=== PATIENT | male | born 1955 | race Caucasian/White ===

== ENCOUNTER 2016-09-28 16:21 | Inpatient (IN) | payer OTHER ==
[~2016-09-28] VITALS: Ht 182.9 cm; Wt 109.2 kg
[~2016-09-28 16:21] MED LIST: AMOX TR-K CLV1 EAC4 PO; ASPIR-LOW81 MG PO; BENZONATATE200 MG PO; CARVEDILOL25 MG PO; CLEOCIN300 MG; COLACE100 MG PO; DIGOX250 MCG PO; ELIQUIS5 MG PO; FLAGYL500 MG PO; FUROSEMIDE40 MG PO; GLUCAGEN1 MG IM/SC; IMDUR30 MG PO; ISOSORBIDE MONO30 MG PO; KEFLEX500 MG PO; LANTUS 10100 UNITS/ SC; LANTUS 3 M100 UNITS1 SC; LASIX40 MG PO; LEVEMIR FL100 UNIT/1 SC; LIPITOR20 MG PO; LISINOPRIL10 MG PO; Levaquin PO; METOCLOPRAMIDE10 MG PO; METOPROLOL SUC200 MG PO; NOVOLOG PE100 UNITS/ SC; PLETAL50 MG PO; PRADAXA150 MG PO; PRADAXA75 MG PO; PRILOSEC40 MG PO; SYNTHROID25 MCG PO; TYLENOL REGULA325 MG PO; WELCHOL625 MG PO
[2016-09-28 17:34] LABS: HEMATOCRIT 28.3 % (38.0-50.0); MCH 29.9 PG (29.0-34.0); MCHC 33.9 G/DL (30.0-36.0); MCV 88.2 FL (86-99); MEAN PLAT.VOLUME 8.9 uM^3 (9.0-12.4); PLATELET COUNT 335 K/uL (156-360); RBC DIS.WIDTH-SD 41.4 % (39-53); RED BLOOD COUNT 3.21 M/uL (4.00-5.50); WHITE BLOOD COUNT 10.6 K/uL (4.1-10.2)
[2016-09-28 17:44] LABS: CHLORIDE 116 mEq/L (99-109); POTASSIUM 3.7 mEq/L (3.7-5.4); SODIUM 138 mEq/L (136-147)
[2016-09-28 17:45] LABS: GLUCOSE 235 mg/dL (70-99)
[2016-09-28 17:47] LABS: ANION GAP 11 MEQ/L (2-14)
[2016-09-28 17:49] LABS: GFR ESTIMATE (CALCULATED) 14 mL/min/
[2016-09-28 17:50] LABS: UREA NITROGEN (BUN) 50 mg/dL (9-23)
[2016-09-28 17:56] LABS: TROP-I INTERPRETATION NEGATIVE; TROPONIN-I 0.02 ng/mL (0.0-0.30)
[2016-09-28 18:52] LABS: CARBOXY HGB 0.9 % (0-5); METHEMOGLOBIN 0.7 % (0-1.5); PCO2 < 19 mm Hg (35-45); PO2 140 mm Hg (80-100)
[2016-09-28 18:53] LABS: COMMENTS - BLOOD GASES A+C+; DEVICE NC; O2 FLOW 3 L/MIN; SITE RR; pH 7.59 (7.35-7.45)
[2016-09-28 18:54] LABS: TOTAL RESP RATE 40 resp/min
[2016-09-28] MEDS ORDERED: ONE-A-DAY ESSE1 EAC1 PO (18:55)
[2016-09-28 19:03] LABS: INTER. NORMALIZED RATIO 1.2; PROTHROMBIN TIME 12.7 (9.2-11.2); PTT 31.3 (25-32)
[2016-09-28 23:22] LABS: POINT-OF-CARE METER ID UU14174216
[2016-09-29] VITALS (7 sets, daily range): BP systolic 137–172; BP diastolic 82–99
[2016-09-29 01:23] LABS: TROP-I INTERPRETATION NEGATIVE; TROPONIN-I 0.02 ng/mL (0.0-0.30)
[2016-09-29 10:10] LABS: TROP-I INTERPRETATION NEGATIVE; TROPONIN-I 0.04 ng/mL (0.0-0.30)
[2016-09-29 10:14] LABS: ADD MIUA? YES; BILIRUBIN NEGATIVE; BLOOD MODERATE; COLOR YELLOW ((YELLOW)); GLUCOSE (STRIP) >=500; KETONES NEGATIVE; LEUKOCYTES NEGATIVE; NITRITE NEGATIVE; PROTEIN (STRIP) >=500; SPECIFIC GRAVITY 1.013 (1.000-1.030); UROBILINOGEN 0.2 MG/DL (0.2-1.0)
[2016-09-29 10:57] LABS: BACTERIA RARE /HPF; EPITHELIAL CELLS RARE /HPF; MUCUS TRACE /LPF; RED BLOOD CELLS 0-5 /HPF (0-5); UCUL ADDED? NO; WHITE BLOOD CELLS 0-5 /HPF (0-5)
[2016-09-29 11:38] LABS: GRANULAR CASTS 20-25 /LPF
[2016-09-29 12:39] LABS: ANION GAP 12 MEQ/L (2-14); CHLORIDE 114 MEQ/L (99-109); GFR ESTIMATE (CALCULATED) 15 mL/min/; GLUCOSE 142 mg/dL (70-99); POTASSIUM 3.7 MEQ/L (3.7-5.4); SAMPLE HEMOLYSIS CHECK 0; SAMPLE ICTERIC CHECK 0; SAMPLE LIPEMIA CHECK 0; SODIUM 138 MEQ/L (136-147); UREA NITROGEN (BUN) 48 mg/dL (9-23)
[2016-09-29 13:58] LABS: IRON 54 MCG/DL (35-150)
[2016-09-29 15:37] LABS: ADD MIUA? YES; BILIRUBIN NEGATIVE; BLOOD SMALL; COLOR YELLOW ((YELLOW)); GLUCOSE (STRIP) >=500; KETONES NEGATIVE; LEUKOCYTES NEGATIVE; NITRITE NEGATIVE; PROTEIN (STRIP) 100; SPECIFIC GRAVITY 1.011 (1.000-1.030); UROBILINOGEN 0.2 MG/DL (0.2-1.0)
[2016-09-29 17:52] LABS: UR CREATININE CONCENTRATION 75.9 MG/DL
[2016-09-29 18:57] LABS: ANION GAP 12 MEQ/L (2-14); CHLORIDE 112 MEQ/L (99-109); GFR ESTIMATE (CALCULATED) 16 mL/min/; GLUCOSE 213 mg/dL (70-99); SAMPLE HEMOLYSIS CHECK 0; SAMPLE ICTERIC CHECK 0; SAMPLE LIPEMIA CHECK 0; SODIUM 135 MEQ/L (136-147); UREA NITROGEN (BUN) 50 mg/dL (9-23)
[2016-09-30] VITALS (9 sets, daily range): BP systolic 134–171; BP diastolic 69–96
[2016-09-30 06:37] LABS: INTER. NORMALIZED RATIO 1.3; PROTHROMBIN TIME 13.2 (9.2-11.2)
[2016-09-30 06:55] LABS: HEMATOCRIT 23.9 % (38.0-50.0); MCH 29.7 PG (29.0-34.0); MCHC 31.8 G/DL (30.0-36.0); MEAN PLAT.VOLUME 9.5 uM^3 (9.0-12.4); RBC DIS.WIDTH-CV 13.4 % (11.8-14.6); RBC DIS.WIDTH-SD 45.3 % (39-53); WHITE BLOOD COUNT 7.6 K/uL (4.1-10.2)
[2016-09-30 07:02] LABS: MCV 93.4 FL (86-99); RED BLOOD COUNT 2.56 M/uL (4.00-5.50)
[2016-09-30 07:04] LABS: PLATELET COUNT 234 K/uL (156-360)
[2016-09-30 08:31] LABS: ANION GAP 10 MEQ/L (2-14); CHLORIDE 117 MEQ/L (99-109); GFR ESTIMATE (CALCULATED) 16 mL/min/; GLUCOSE 144 mg/dL (70-99); POTASSIUM 3.7 MEQ/L (3.7-5.4); SAMPLE HEMOLYSIS CHECK 0; SAMPLE ICTERIC CHECK 0; SAMPLE LIPEMIA CHECK 0; SODIUM 140 MEQ/L (136-147); UREA NITROGEN (BUN) 50 mg/dL (9-23)
[2016-09-30 08:34] LABS: HEMATOLOGY COMMENT 1 SN; PLAT.SUFFICIENCY ADEQUATE
[2016-09-30 16:47] LABS: POINT-OF-CARE METER ID UU14174216
[2016-09-30 21:22] LABS: POINT-OF-CARE METER ID UU14174216
[2016-10-01] VITALS (7 sets, daily range): BP systolic 132–180; BP diastolic 74–94
[2016-10-01 07:01] LABS: Estimated Average Glucose 203 mg/dL (70-123); HEMOGLOBIN A1c (GLYCOHEMOGLOB) 8.7 % HGB (Below 5.7)
[2016-10-01 07:48] LABS: POINT-OF-CARE METER ID UU14174216
[2016-10-01 09:11] LABS: MCH 29.3 PG (29.0-34.0); MCHC 31.5 G/DL (30.0-36.0); MCV 92.9 FL (86-99); MEAN PLAT.VOLUME 9.5 uM^3 (9.0-12.4); PLATELET COUNT 249 K/uL (156-360); RBC DIS.WIDTH-CV 13.5 % (11.8-14.6); RBC DIS.WIDTH-SD 45.1 % (39-53)
[2016-10-01 09:32] LABS: ANION GAP 9 MEQ/L (2-14); CHLORIDE 111 MEQ/L (99-109); GFR ESTIMATE (CALCULATED) 16 mL/min/; GLUCOSE 158 mg/dL (70-99); POTASSIUM 3.8 MEQ/L (3.7-5.4); SAMPLE HEMOLYSIS CHECK 0; SAMPLE ICTERIC CHECK 0; SAMPLE LIPEMIA CHECK 0; SODIUM 141 MEQ/L (136-147); UREA NITROGEN (BUN) 48 mg/dL (9-23)
[2016-10-01 09:35] LABS: INTER. NORMALIZED RATIO 1.2; PROTHROMBIN TIME 12.4 (9.2-11.2)
[2016-10-01 09:55] LABS: PTT 48.8 (25-32)
[2016-10-01 11:18] LABS: URINE TOTAL PROTEIN 389 MG/DL (0-10)
[2016-10-01 11:44] LABS: POINT-OF-CARE METER ID UU14174216
[2016-10-01 16:12] LABS: POINT-OF-CARE METER ID UU14174216
[2016-10-02 03:15] VITALS: BP 131/63
[2016-10-02 07:36] LABS: POINT-OF-CARE METER ID UU14174216
[2016-10-02 09:00] VITALS: BP 160/82
[2016-10-02 10:17] LABS: PTT 53.5 (25-32)
[2016-10-02 10:24] LABS: INTACT PARATHYROID HORMONE 282 pg/mL (10-69)
[2016-10-02 10:36] LABS: C3 COMPLEMENT 109 MG/DL (58-170); C4 COMPLEMENT 22 MG/DL (10-40)
[2016-10-02 10:37] LABS: ANION GAP 12 MEQ/L (2-14); CHLORIDE 110 MEQ/L (99-109); GFR ESTIMATE (CALCULATED) 17 mL/min/; GLUCOSE 123 mg/dL (70-99); POTASSIUM 3.7 MEQ/L (3.7-5.4); SAMPLE HEMOLYSIS CHECK 0; SAMPLE ICTERIC CHECK 0; SAMPLE LIPEMIA CHECK 0; SODIUM 142 MEQ/L (136-147); UREA NITROGEN (BUN) 50 mg/dL (9-23)
[2016-10-02 11:18] LABS: POINT-OF-CARE METER ID UU14174216
[2016-10-02 12:00] VITALS: BP 155/85
[2016-10-02 12:40] LABS: HBSG INDEX 0.19
[2016-10-02 12:41] LABS: AHBS INDEX 0.19; HEPATITIS B SURFACE ANTIBODY Nonreactive; HPCA INDEX 0.16
[2016-10-02 14:00] LABS: IFE GEL NO. 47-8
[2016-10-02 15:02] LABS: INTER. NORMALIZED RATIO 1.2; PROTHROMBIN TIME 12.6 (9.2-11.2); PTT 57.1 (25-32)
[2016-10-02 16:25] LABS: POINT-OF-CARE METER ID UU14174216
[2016-10-02 18:34] LABS: INTER. NORMALIZED RATIO 1.3; PROTHROMBIN TIME 13.3 (9.2-11.2)
[2016-10-02 19:45] VITALS: BP 182/90
[2016-10-02 22:03] LABS: POINT-OF-CARE METER ID UU14174216
[2016-10-03 00:40] VITALS: BP 149/91
[2016-10-03 05:25] VITALS: BP 149/85
[2016-10-03 06:17] LABS: HEMATOCRIT 26.2 % (38.0-50.0); MCH 29.5 PG (29.0-34.0); MCHC 31.3 G/DL (30.0-36.0); MCV 94.2 FL (86-99); MEAN PLAT.VOLUME 9.7 uM^3 (9.0-12.4); PLATELET COUNT 202 K/uL (156-360); RBC DIS.WIDTH-CV 13.6 % (11.8-14.6); RBC DIS.WIDTH-SD 46.8 % (39-53); RED BLOOD COUNT 2.78 M/uL (4.00-5.50); WHITE BLOOD COUNT 8.6 K/uL (4.1-10.2)
[2016-10-03 06:47] LABS: INTER. NORMALIZED RATIO 1.2; PROTHROMBIN TIME 12.7 (9.2-11.2); PTT 57.9 (25-32)
[2016-10-03 06:49] LABS: ANION GAP 10 MEQ/L (2-14); CHLORIDE 111 MEQ/L (99-109); GFR ESTIMATE (CALCULATED) 16 mL/min/; GLUCOSE 96 mg/dL (70-99); SAMPLE HEMOLYSIS CHECK 0; SAMPLE ICTERIC CHECK 0; SAMPLE LIPEMIA CHECK 0; SODIUM 143 MEQ/L (136-147); UREA NITROGEN (BUN) 54 mg/dL (9-23)
[2016-10-03 07:22] VITALS: BP 150/80
[2016-10-03 10:04] LABS: MYELOPEROXIDASE ANTIBODY (MPO) <1.0 AI (<1.0); PROTEINASE-3 ANTIBODY+ <1.0 AI (<1.0)
[2016-10-03 11:35] VITALS: BP 124/76
[2016-10-03 12:10] LABS: POINT-OF-CARE METER ID UU13113781
[2016-10-03 15:56] VITALS: BP 173/99
[2016-10-03 19:13] LABS: INTER. NORMALIZED RATIO 1.2; PROTHROMBIN TIME 12.7 (9.2-11.2); PTT 49.6 (25-32)
[2016-10-03 19:25] VITALS: BP 165/94
[2016-10-03 21:10] LABS: POINT-OF-CARE METER ID UU14174216
[2016-10-04 00:05] VITALS: BP 151/80
[2016-10-04 04:17] VITALS: BP 149/95
[2016-10-04 05:33] LABS: INTER. NORMALIZED RATIO 1.3; PROTHROMBIN TIME 13.1 (9.2-11.2)
[2016-10-04 07:35] LABS: POINT-OF-CARE METER ID UU14174216
[2016-10-04 08:45] VITALS: BP 153/86
[2016-10-04 10:04] LABS: INTER. NORMALIZED RATIO 1.3; PROTHROMBIN TIME 13.7 (9.2-11.2); PTT 60.9 (25-32)
[2016-10-04 11:30] LABS: POINT-OF-CARE METER ID UU14174216
[2016-10-04 12:17] VITALS: BP 162/805
[2016-10-04 12:20] LABS: IFE GEL NO. 48-5
[2016-10-04] MEDS ORDERED: LASIX20 MG PO (12:20)
[2016-10-04] MEDS ORDERED: LOVENOX100 MG/1 M SC (12:20)
[2016-10-04] MEDS ORDERED: ARANESP40 MCG/0.4 SC (12:20)
[2016-10-04] MEDS ORDERED: PROCRIT40000 UNI1 IV (15:17)
[2016-10-04] MEDS ORDERED: COUMADIN5 MG PO (15:23)
== END 2016-10-04 16:09 | disposition home or self-care (01) | DRG 682 ==
LOC: EME 16:21 → EDOF 19:25 → 4EAST 19:25
PROVIDERS: Emergency Medicine; Internal Medicine; Internal Medicine Nephrology
DX: N17.9 Acute kidney failure, unspecified (principal); I50.23 Acute on chronic systolic (congestive) heart failure; I13.0 Hypertensive heart and chronic kidney disease with heart failure and stage 1 through stage 4 chronic kidney disease, or unspecified chronic kidney disease; N18.4 Chronic kidney disease, stage 4 (severe); E11.22 Type 2 diabetes mellitus with diabetic chronic kidney disease; D63.1 Anemia in chronic kidney disease; R06.09 Other forms of dyspnea; I82.411 Acute embolism and thrombosis of right femoral vein; I82.431 Acute embolism and thrombosis of right popliteal vein; N04.9 Nephrotic syndrome with unspecified morphologic changes; E11.21 Type 2 diabetes mellitus with diabetic nephropathy; T87.89 Other complications of amputation stump; J45.909 Unspecified asthma, uncomplicated; I25.5 Ischemic cardiomyopathy; I48.2 Chronic atrial fibrillation; N25.81 Secondary hyperparathyroidism of renal origin; I25.10 Atherosclerotic heart disease of native coronary artery without angina pectoris; I73.9 Peripheral vascular disease, unspecified; E03.9 Hypothyroidism, unspecified; F31.9 Bipolar disorder, unspecified; K21.9 Gastro-esophageal reflux disease without esophagitis; E55.9 Vitamin D deficiency, unspecified; Z89.511 Acquired absence of right leg below knee; Z86.711 Personal history of pulmonary embolism; Z79.01 Long term (current) use of anticoagulants; Z79.4 Long term (current) use of insulin; Z79.82 Long term (current) use of aspirin
CPT/HCPCS: 36600; 71010; 71020; 76770; 78582; 80048; 80069; 81003; 82010; 82306; 82570; 82607; 82746; 82800; 82803; 82948; 83036; 83540; 83970; 84156; 84439; 84443; 84466; 84484; 85027; 85610; 85730; 86021 90; 86160; 86334; 86335; 86706; 86803; 87070; 87075; 87205; 87340; 93005; 93306; 93970; 94799; 99281; 99285; A9539; A9540; J0881; J1650; J1815; J1940; J7030; J7070

== ENCOUNTER → 2016-12-21 | Outpatient (CLI) | payer MEDICARE, OTHER ==
[~2016-12-21] MED LIST changes: +ARANESP40 MCG/0.4 SC; +COUMADIN5 MG PO; +LASIX20 MG PO; +LOVENOX100 MG/1 M SC; +ONE-A-DAY ESSE1 EAC1 PO; +PROCRIT40000 UNI1 IV
== END | disposition home or self-care (01) ==
LOC: CDC 13:54
DX: M62.422 Contracture of muscle, left upper arm (principal); R94.31 Abnormal electrocardiogram [ECG] [EKG]
CPT/HCPCS: 93000

== ENCOUNTER 2016-12-28 06:58 | Day surgery (SDC) | payer OTHER ==
[~2016-12-28] VITALS: Ht 182.9 cm; Wt 104.3 kg
[~2016-12-28 06:58] MED LIST changes: +REGLAN10 MG PO; +WARFARIN SODIUM5 MG PO
[2016-12-28 07:39] VITALS: BP 161/83
[2016-12-28 07:57] LABS: POINT-OF-CARE METER ID UU13113694
[2016-12-28 08:49] LABS: HEMATOCRIT 24.4 % (38.0-50.0); MCH 29.5 PG (29.0-34.0); MCHC 32.8 G/DL (30.0-36.0); MEAN PLAT.VOLUME 9.9 uM^3 (9.0-12.4); PLATELET COUNT 250 K/uL (156-360); RBC DIS.WIDTH-CV 13.5 % (11.8-14.6); RBC DIS.WIDTH-SD 44.5 % (39-53); RED BLOOD COUNT 2.71 M/uL (4.00-5.50); WHITE BLOOD COUNT 10.8 K/uL (4.1-10.2)
[2016-12-28 09:01] LABS: INTER. NORMALIZED RATIO 1.2; PROTHROMBIN TIME 12.7 (9.2-11.2); PTT 32.5 (25-32)
[2016-12-28 09:22] LABS: POINT-OF-CARE METER ID UU13113694
[2016-12-28 09:27] LABS: ANION GAP 12 MEQ/L (2-14); CHLORIDE 115 MEQ/L (99-109); GFR ESTIMATE (CALCULATED) 12 mL/min/; GLUCOSE 234 mg/dL (70-99); POTASSIUM 3.9 MEQ/L (3.7-5.4); SAMPLE HEMOLYSIS CHECK 0; SAMPLE ICTERIC CHECK 0; SAMPLE LIPEMIA CHECK 0; SODIUM 139 MEQ/L (136-147); UREA NITROGEN (BUN) 58 mg/dL (9-23)
[2016-12-28 11:31] LABS: POINT-OF-CARE METER ID UU13113675
[2016-12-28 12:01] VITALS: BP 142/92
[2016-12-28 13:01] VITALS: BP 137/86
== END 2016-12-28 13:05 | disposition home or self-care (01) ==
LOC: SDC
PROVIDERS: Surgery
DX: I12.0 Hypertensive chronic kidney disease with stage 5 chronic kidney disease or end stage renal disease (principal); E11.22 Type 2 diabetes mellitus with diabetic chronic kidney disease; N18.6 End stage renal disease; E78.00 Pure hypercholesterolemia, unspecified; I25.10 Atherosclerotic heart disease of native coronary artery without angina pectoris; I25.2 Old myocardial infarction; Z89.511 Acquired absence of right leg below knee; Z79.82 Long term (current) use of aspirin; Z79.4 Long term (current) use of insulin; Z79.01 Long term (current) use of anticoagulants
CPT/HCPCS: 80048; 82948; 85027; 85610; 85730; 93005; J0131; J0690; J1644; J2250; J2720; J3010; S0020

== ENCOUNTER 2017-02-01 08:55 | Inpatient (IN) | payer OTHER ==
[~2017-02-01] VITALS: Ht 182.9 cm; Wt 102.4 kg
[~2017-02-01 08:55] MED LIST changes: +ASPIR 8181 M1 PO; +ATORVASTATIN CA20 MG PO; +DIGOX125 MCG PO; -DIGOX250 MCG PO; +LISINOPRIL20 MG PO
[2017-02-01 10:05] LABS: HEMATOCRIT 30.1 % (38.0-50.0); MCH 30.4 PG (29.0-34.0); MCHC 31.6 G/DL (30.0-36.0); MCV 96.2 FL (86-99); RBC DIS.WIDTH-CV 15.2 % (11.8-14.6); RBC DIS.WIDTH-SD 53.1 % (39-53); RED BLOOD COUNT 3.13 M/uL (4.00-5.50); WHITE BLOOD COUNT 13.1 K/uL (4.1-10.2)
[2017-02-01 10:10] LABS: INTER. NORMALIZED RATIO 1.3; PROTHROMBIN TIME 14.5 SEC (10.2-12.9)
[2017-02-01 10:12] LABS: PTT 45.4 SEC (25-37)
[2017-02-01 10:13] LABS: CHLORIDE 99 mEq/L (99-109); POTASSIUM 3.2 mEq/L (3.7-5.4); SODIUM 138 mEq/L (136-147)
[2017-02-01 10:15] LABS: GLUCOSE 263 mg/dL (70-99)
[2017-02-01 10:16] LABS: ANION GAP 15 MEQ/L (2-14)
[2017-02-01 10:19] LABS: GFR ESTIMATE (CALCULATED) 13 mL/min/
[2017-02-01 10:20] LABS: UREA NITROGEN (BUN) 27 mg/dL (9-23)
[2017-02-01 10:21] LABS: TROP-I INTERPRETATION NEGATIVE; TROPONIN-I 0.12 ng/mL (0.0-0.30)
[2017-02-01 10:46] LABS: MEAN PLAT.VOLUME 9.9 uM^3 (9.0-12.4); PLAT.SUFFICIENCY DECREASED
[2017-02-01 11:37] LABS: PLATELET COUNT 91 K/uL (156-360)
[2017-02-01] MEDS ORDERED: NORVASC5 MG PO (13:05)
[2017-02-01] MEDS ORDERED: ERGOCALCIF50000 UNIT PO (13:13)
[2017-02-01] MEDS ORDERED: MULTI-VITAMIN1 EAC4 PO (13:15)
[2017-02-01 14:19] LABS: CARBON DIOXIDE (BICARBONATE) 26.9 MEQ/L (20-31)
[2017-02-01 16:50] LABS: TROP-I INTERPRETATION NEGATIVE; TROPONIN-I 0.11 ng/mL (0.0-0.30)
[2017-02-01 23:02] LABS: TROP-I INTERPRETATION NEGATIVE; TROPONIN-I 0.15 ng/mL (0.0-0.30)
[2017-02-02] VITALS (8 sets, daily range): BP systolic 106–150; BP diastolic 61–73
[2017-02-02 06:56] LABS: HEMATOCRIT 25.7 % (38.0-50.0); MCH 30.2 PG (29.0-34.0); MCHC 30.7 G/DL (30.0-36.0); MCV 98.1 FL (86-99); PLATELET COUNT 105 K/uL (156-360); RBC DIS.WIDTH-CV 15.3 % (11.8-14.6); RBC DIS.WIDTH-SD 55.2 % (39-53); RED BLOOD COUNT 2.62 M/uL (4.00-5.50); WHITE BLOOD COUNT 6.7 K/uL (4.1-10.2)
[2017-02-02 07:08] LABS: INTER. NORMALIZED RATIO 1.3; PROTHROMBIN TIME 14.8 SEC (10.2-12.9)
[2017-02-02 07:20] LABS: ANION GAP 10 MEQ/L (2-14); CHLORIDE 99 MEQ/L (99-109); GFR ESTIMATE (CALCULATED) 10 mL/min/; GLUCOSE 180 mg/dL (70-99); POTASSIUM 3.4 MEQ/L (3.7-5.4); SAMPLE HEMOLYSIS CHECK 0; SAMPLE ICTERIC CHECK 0; SAMPLE LIPEMIA CHECK 0; SODIUM 138 MEQ/L (136-147); UREA NITROGEN (BUN) 36 mg/dL (9-23)
[2017-02-03 07:13] LABS: INTER. NORMALIZED RATIO 1.4; PROTHROMBIN TIME 15.3 SEC (10.2-12.9)
[2017-02-03 07:35] VITALS: BP 123/75
[2017-02-03 07:43] LABS: POINT-OF-CARE METER ID UU13113781
[2017-02-03 10:51] LABS: HBSG INDEX 0.16
[2017-02-03 10:52] LABS: AHBS INDEX 0.19; HEPATITIS B SURFACE ANTIBODY Nonreactive
[2017-02-03 11:50] VITALS: BP 113/72
[2017-02-04 11:47] LABS: POINT-OF-CARE METER ID UU13113781
== END 2017-02-03 12:30 | disposition home or self-care (01) | DRG 291 ==
LOC: EME 08:55 → EDOF 11:33 → ENRESERV 11:40 → EDOF 11:45 → CANRESERV 11:49 → ENRESERV 11:49 → EDOF 14:43 → 4EAST 14:43 → EDOF 14:43 → ENRESERV 15:05 → 4EAST 19:33 → ENPENDDIS 02-03 → 4EAST 02-03 12:30
PROVIDERS: Emergency Medicine; Internal Medicine
PROC: 5A1D00Z (ICD-10-PCS; principal; 2017-02-02)
DX: I13.2 Hypertensive heart and chronic kidney disease with heart failure and with stage 5 chronic kidney disease, or end stage renal disease (principal); N18.6 End stage renal disease; N25.81 Secondary hyperparathyroidism of renal origin; K21.9 Gastro-esophageal reflux disease without esophagitis; I73.9 Peripheral vascular disease, unspecified; I50.9 Heart failure, unspecified; I48.2 Chronic atrial fibrillation; I27.2 Other secondary pulmonary hypertension; I25.5 Ischemic cardiomyopathy; E87.6 Hypokalemia; E83.39 Other disorders of phosphorus metabolism; E11.22 Type 2 diabetes mellitus with diabetic chronic kidney disease; I25.10 Atherosclerotic heart disease of native coronary artery without angina pectoris; J84.10 Pulmonary fibrosis, unspecified; E78.5 Hyperlipidemia, unspecified; E55.9 Vitamin D deficiency, unspecified; E03.9 Hypothyroidism, unspecified; D63.1 Anemia in chronic kidney disease; Z79.4 Long term (current) use of insulin; Z87.442 Personal history of urinary calculi; Z89.511 Acquired absence of right leg below knee; Z91.19 Patient's noncompliance with other medical treatment and regimen; Z99.2 Dependence on renal dialysis; Z91.120 Patient's intentional underdosing of medication regimen due to financial hardship; Z91.15 Patient's noncompliance with renal dialysis; Z86.711 Personal history of pulmonary embolism; Z89.411 Acquired absence of right great toe; Z82.49 Family history of ischemic heart disease and other diseases of the circulatory system
CPT/HCPCS: 71020; 71275; 80048; 80069; 82803; 82948; 84484; 85027; 85379; 85610; 85730; 86706; 87340; 93005; 94640; 99281; 99285; G0480; J0881; J1644; J1756; J1815

== ENCOUNTER 2017-02-18 07:32 | Emergency (ER) | payer OTHER ==
[~2017-02-18 07:32] MED LIST changes: +ERGOCALCIF50000 UNIT PO; +MULTI-VITAMIN1 EAC4 PO; +NORVASC5 MG PO
== END 2017-02-18 07:42 ==
LOC: EME 07:32
PROC: 5A2204Z Restoration of Cardiac Rhythm, Single (ICD-10-PCS; principal; 2017-02-18)
DX: I46.9 Cardiac arrest, cause unspecified (principal); I12.0 Hypertensive chronic kidney disease with stage 5 chronic kidney disease or end stage renal disease; E11.22 Type 2 diabetes mellitus with diabetic chronic kidney disease; N18.6 End stage renal disease; Z99.2 Dependence on renal dialysis; Z79.4 Long term (current) use of insulin; Z86.711 Personal history of pulmonary embolism; Z79.01 Long term (current) use of anticoagulants; Z79.82 Long term (current) use of aspirin; E03.9 Hypothyroidism, unspecified; Z89.511 Acquired absence of right leg below knee
CPT/HCPCS: 80048; 81003; 82150; 83605; 83690; 84484; 85025; 85610; 85730; 86850; 86900; 86901; 87040; 99281; 99285; G0480